=== PATIENT | male | born 1995 | race Two or more races ===

== ENCOUNTER 2017-02-18 22:30 | Emergency (ER) | payer OTHER ==
[~2017-02-18] VITALS: Ht 185.4 cm; Wt 99.5 kg
[2017-02-18 22:35] VITALS: Ht 185.4 cm; Wt 99.5 kg
[2017-02-18] MEDS ORDERED: DIPHTH/TET/ACEL PERTUSS (ADULT) 0.5 ML VIAL IM* ONE (23:00)
[2017-02-18] MEDS ORDERED: LIDOCAINE 2% (MDV) 20 ML INJ INJ ONE (23:00)
[2017-02-18] MEDS ORDERED: BACITUD TOP (23:23)
--- NOTE | 2017-02-19 00:19 | ERD ---
ER Documentation Chief Complaint Date/Time DATE: 02/19/17 TIME: 00:16 Chief Complaint left thumb laceration s/p opening can HPI This is a 21-year-old male presents to the ER with a laceration to the base of his left thumb that occurred today while opening and can of corn. Bleeding was controlled before arriving to the ER. Patient denies any pain to the area. He denies any numbness or tingling. Patient does not know if he has a recent tetanus shot. ROS 12 point review of systems was done, all negative except per HPI. Medications Home Meds Active Scripts Bacitracin* (Bacitracin Oint (UD)*) 1 Applic Oint, 1 APPLIC TOP ONCE for 3 Days , PKT APPLY TO Prov:DORY MCCONNELL 02/18/17 Allergies Allergies: Coded Allergies: No Known Allergy (Unverified , 02/18/17) PMhx/Soc Medical and Surgical Hx: pt denies Medical Hx History of Surgery: Yes (right foot surgery, tonsilectomy) Anesthesia Reaction: No Hx Neurological Disorder: No Hx Respiratory Disorders: No Hx Cardiac Disorders: No Hx Psychiatric Problems: No Hx Miscellaneous Medical Probl: No Hx Alcohol Use: Yes (occasional) Hx Substance Use: No Hx Tobacco Use: No Physical Exam Vitals Vital Signs Date Time Temp Pulse Resp B/P Pulse Ox O2 Delivery O2 Flow Rate FiO2 02/18/17 22:35 98.2 109 18 177/95 100 Physical Exam GENERAL: The patient is well developed and appropriate for usual state of health , in no apparent distress. HEENT: Atraumatic. CHEST: Clear to auscultation bilaterally. There are no rales, wheezes or rhonchi. HEART: Regular rate and rhythm. No murmurs, clicks, rubs or gallops. EXTREMITIES: left hand: patient has a 4cm linear laceration to the base of the dorsal 1st digit. DTP and DTS are intact. normal ROM of MCP and DIP joint. NEURO: Alert and oriented. SKIN: There is no apparent rash or petechia. The skin is warm and dry. Results 24 hrs Current Medications Medications (Trade) Dose Ordered Sig/Cristiane Route PRN Reason Start Time Stop Time Status Last Admin Dose Admin Lidocaine (Xylocaine 2% (Mdv) 20 ml) 20 ml ONCE ONCE INJ 02/18/17 23:00 02/18/17 23:01 DC Diphtheria/ Tetanus/Acell Pertussis (Adacel) 0.5 ml ONCE ONCE IM* 02/18/17 23:00 02/18/17 23:01 DC 02/18/17 22:59 Procedures/MDM Laceration Repair by me: Anesthesia: 1% lidocaine locally Location: Left dorsal base of the first digit Tendon/Joint/Nerves: No injury Foreign body: None detected after copious irrigation and exploration Technique: 6 3'0 sutures were put in place Complexity: No subcutaneous sutures/mucosal repair/ edge excision Post Closure Length: 4 cm Patient's bleeding was easily controlled in the department and there is no indication of anemia. No evidence of compartment syndrome, neurologic injury, vascular injury, open joint, tendon laceration, or foreign body. Patient is appropriate for outpatient follow up. 48 hour wound check. Scar minimization instructions given. Departure Diagnosis: Primary Impression: Laceration Condition: Stable Patient Instructions: Laceration, All Referrals: NEWTON CRUM (PCP) Additional Instructions: MAKE SURE TO GET A WOUND CHECK IN 48 HOURS SUTURES COME OUT IN 1 WEEK FOLLOW UP WITH PCP WITHIN 1-2 DAYS OR RETURN TO ER SOONER IF SYMPTOMS WORSEN DORY MCCONNELL Feb 19, 2017 00:19
== END 2017-02-18 23:39 | disposition home or self-care (01) ==
LOC: FTE 22:30
DX: S61.012A Laceration without foreign body of left thumb without damage to nail, initial encounter (principal); W22.8XXA Striking against or struck by other objects, initial encounter; Y92.9 Unspecified place or not applicable; Z23 Encounter for immunization
CPT/HCPCS: 90471; 90715

== ENCOUNTER 2017-02-20 11:17 | Emergency (ER) | payer OTHER ==
[~2017-02-20] VITALS: Ht 188 cm; Wt 98.5 kg
[~2017-02-20 11:17] MED LIST: BACITUD TOP
[2017-02-20 11:25] VITALS: Ht 188 cm; Wt 98.5 kg
--- NOTE | 2017-02-20 11:42 | ERD ---
ER Documentation Chief Complaint Date/Time DATE: 02/20/17 TIME: 11:40 Chief Complaint 2nd day wound check left hand HPI Is a 21-year-old male who presents the emergency department today for a wound check of a laceration he sustained 2 days ago while trying to open a can. Patient states he is taking Motrin for pain. States that the hand swelled up some yesterday. Denies any fevers or chills. ROS All systems reviewed and are negative except as per history of present illness. Medications Home Meds Active Scripts Bacitracin* (Bacitracin Oint (UD)*) 1 Applic Oint, 1 APPLIC TOP ONCE for 3 Days , PKT APPLY TO Prov:DORY MCCONNELL Alfredo 02/18/17 Allergies Allergies: Coded Allergies: No Known Allergy (Unverified , 02/20/17) PMhx/Soc History of Surgery: Yes (right foot surgery, tonsilectomy) Anesthesia Reaction: No Hx Neurological Disorder: No Hx Respiratory Disorders: No Hx Cardiac Disorders: No Hx Psychiatric Problems: No Hx Miscellaneous Medical Probl: No Hx Alcohol Use: Yes (occasional) Hx Substance Use: No Hx Tobacco Use: No Physical Exam Vitals Vital Signs Date Time Temp Pulse Resp B/P Pulse Ox O2 Delivery O2 Flow Rate FiO2 02/20/17 11:25 98.2 73 18 125/66 100 Physical Exam Const: Pleasant, no acute distress Head: Atraumatic Eyes: Normal Conjunctiva ENT: Normal External Ears, Nose and Mouth. Neck: Full range of motion..~ No meningismus. Resp: Clear to auscultation bilaterally Cardio: Regular rate and rhythm, no murmurs Skin: No petechiae or rashes MSK: Left hand with no obvious deformity. No effusion. No ecchymosis. Evidence of 6 sutures placed along medial border of thumb. Pulses 2+. Good cap refill.. No purulent drainage. Neur: Awake and alert Psych: Normal Mood and Affect Procedures/MDM This is a 21-year-old male who presents the emergency department today for wound check of a laceration he sustained 2 days ago. Upon patient's review of medical records he sustained an injury to his left hand while opening a can. Wound appears to be healing well and is well approximated. There is evidence of 6 sutures placed. There is no erythema or warmth or purulent drainage. Low suspicion for cellulitis, sepsis or deep space infection. Patient was instructed to keep the wound clean and dry. He may return in 5-7 days for suture removal. Wound was redressed here in the emergency department. At this time the patient is stable for discharge and outpatient management. Patient should follow up with their PCP in the next 1-2 days. They may return to the emergency department sooner for any persistent or worsening of symptoms. Patient understood and agreed with the plan. Departure Diagnosis: Primary Impression: Encounter for wound re-check Condition: Fair Patient Instructions: Wound Check, Lac F/U (No Infection) Additional Instructions: Call your primary care doctor TOMORROW for an appointment during the next 1-2 days.See the doctor sooner or return here if your condition worsens before your appointment time. Keep wound clean and dry Suture removal in 5-7 days MARTHA HAWLEY PA-C Feb 20, 2017 11:42
== END 2017-02-20 11:45 | disposition home or self-care (01) ==
LOC: FTE 11:17
DX: Z48.01 Encounter for change or removal of surgical wound dressing (principal)
CPT/HCPCS: 99281

== ENCOUNTER 2017-02-28 14:32 | Emergency (ER) | END 2017-02-28 14:50 | disposition home or self-care (01) | DX: Z48.02 Encounter for removal of sutures (principal) ==

== ENCOUNTER 2018-10-09 18:45 | Emergency (ER) | payer SELFPAY ==
[~2018-10-09] VITALS: Ht 188 cm; Wt 115.0 kg
[2018-10-09 18:57] VITALS: Ht 188 cm; Wt 115.0 kg
[2018-10-09 21:04] VITALS: BP 167/84; PULSE 75; RESP 16
== END 2018-10-10 00:38 | disposition left against medical advice (07) ==
LOC: FTE 18:45
DX: Z53.21 Procedure and treatment not carried out due to patient leaving prior to being seen by health care provider (principal)